=== PATIENT | male | born 1975 | race Caucasian/White ===

== ENCOUNTER 2018-03-25 19:48 | Emergency (ER) | payer MEDICAID ==
[~2018-03-25] VITALS: Ht 180.3 cm; Wt 127.3 kg
[2018-03-25 19:51] VITALS: BP 132/75
== END 2018-03-25 21:55 | disposition home or self-care (01) ==
LOC: ER 19:48
DX: S93.401A Sprain of unspecified ligament of right ankle, initial encounter (principal); E11.9 Type 2 diabetes mellitus without complications; Z98.890 Other specified postprocedural states; X50.1XXA Overexertion from prolonged static or awkward postures, initial encounter; Y93.89 Activity, other specified; Y92.89 Other specified places as the place of occurrence of the external cause; Y99.8 Other external cause status
CPT/HCPCS: 29515; 73610; 99283